=== PATIENT | female | born 1975 | race American Indian/Alaskan Native ===

== ENCOUNTER 2018-02-06 06:48 | Day surgery (SDC) | payer BC ==
--- NOTE | 2018-02-06 08:17 | CP.SDSHP ---
Same Day Surgery H & P - History Proposed Procedure: colonoscopy Pre-Op Diagnosis: iron deficiency anemia - Allergies Allergies: Allergies No Known Allergies Allergy (Verified 12/05/17 15:36) - Physical Exam General Appearance: NAD Vital Signs: Vital Signs 02/06/18 07:08 Temperature 97.8 F Pulse Rate 65 Respiratory 19 Rate Blood Pressure 126/74 O2 Sat by Pulse 100 Oximetry Mental Status: Alert & Oriented x3 Neuro: WNL Heart: WNL Lungs: WNL GI: WNL - {Optional Preform as Required} Abdomen: WNL - Impression Pt. Evaluated Today:Candidate for Anesthesia & Procedure: Yes - Date & Time Date: 02/06/18 Time: 08:17 Short Stay Discharge - Short Stay Discharge Admitting Diagnosis/Reason for Visit: ANEMIA Disposition: HOME/ ROUTINE Referrals: Yuko Hair MD [Primary Care Provider] -
[2018-02-06] MEDS ORDERED: Lactated Ringer's 1,000 ML IV ONE (08:18)
[2018-02-06] MEDS ORDERED: Lidocaine Hydrochloride 5 ML INJ ONE (08:23)
[2018-02-06] MEDS ORDERED: Propofol 10 mg/ml Inj (20 ML) ONE (08:23)
[2018-02-06 10:53] VITALS: TEMP 98.1
[2018-02-06 11:03] VITALS: BP 112/70; PULSE 59; RESP 16; O2SAT 99
== END 2018-02-06 10:00 | disposition home or self-care (01) ==
LOC: C.ENDO 06:48
PROVIDERS: ATTEND Internal Medicine Gastroenterology
DX: D12.0 Benign neoplasm of cecum (principal); K64.8 Other hemorrhoids; D50.9 Iron deficiency anemia, unspecified
CPT/HCPCS: 45380; 84703; 88305; J2704; J7120